=== PATIENT | male | born 2000 | race Caucasian/White ===

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

== ENCOUNTER 2021-06-15 08:36 | Emergency (ER) | payer OTHER ==
[~2021-06-15] VITALS: Ht 177.8 cm; Wt 94.3 kg
[2021-06-15 08:42] VITALS: BP 135/65
[2021-06-15] MEDS ORDERED: HYD1C TP (09:48)
[2021-06-15] MEDS ORDERED: MIRABULK PO (09:48)
[2021-06-15] MEDS ORDERED: LIDO5GEL3 TP (09:48)
[2021-06-15] MEDS ORDERED: DOCU-299 PO (09:48)
[2021-06-15 10:04] VITALS: BP 128/55
--- NOTE | 2021-06-15 10:05 | NUR ---
Patient discharged with v/s stable. Written and verbal after care instructions given CONSTIPATION, SITZ BATH, AND HEMORRHOIDS and explained. Patient alert, oriented and verbalized understanding of instructions. Ambulatory with steady gait. All questions addressed prior to discharge. ID band removed. Patient advised to follow up with PMD. Rx of COLACE, HYDROCORTISONE, LIDOCAINE, AND MIRALAX given. Patient educated on indication of medication including possible reaction and side effects. Opportunity to ask questions provided and answered.
== END 2021-06-15 10:05 | disposition home or self-care (01) ==
LOC: MED 08:36
DX: K64.9 Unspecified hemorrhoids (principal)
CPT/HCPCS: 99282

== ENCOUNTER 2021-09-30 13:40 | Emergency (ER) | payer OTHER ==
[~2021-09-30] VITALS: Ht 177.8 cm; Wt 88.9 kg
[~2021-09-30 13:40] MED LIST: DOCU-299 PO; HYD1C TP; LIDO5GEL3 TP; MIRABULK PO
[2021-09-30 13:54] VITALS: BP 156/89
--- NOTE | 2021-09-30 14:05 | NUR ---
DR CALVIN AND DR MOERNO AT TRIAGE DRESSING PT FINGERS AND EXAMINING AREA
--- NOTE | 2021-09-30 14:09 | NUR ---
PT AMBULATED TO BED 10 WITH STEADY GAIT
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
[2021-09-30] MEDS ORDERED: ACET-8386 PO (14:19)
[2021-09-30] MEDS ORDERED: CEPH-588 PO (14:25)
--- NOTE | 2021-09-30 14:31 | NUR ---
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
[2021-09-30] MEDS ORDERED: KETOROLAC 15 MG/ML VIAL IM ONE (14:35)
[2021-09-30 16:20] VITALS: BP 119/79
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
== END 2021-09-30 16:23 | disposition home or self-care (01) ==
LOC: MED 13:40
DX: S62.633B Displaced fracture of distal phalanx of left middle finger, initial encounter for open fracture (principal); S62.635D Displaced fracture of distal phalanx of left ring finger, subsequent encounter for fracture with routine healing; Z20.822 Contact with and (suspected) exposure to COVID-19; X58.XXXA Exposure to other specified factors, initial encounter; Y93.89 Activity, other specified; Y92.89 Other specified places as the place of occurrence of the external cause; Y99.8 Other external cause status
CPT/HCPCS: 73130; 87426; 96372; 99284; J1885

== ENCOUNTER 2024-03-15 22:22 | Emergency (ER) | payer OTHER ==
[~2024-03-15] VITALS: Ht 175.3 cm; Wt 99.8 kg
[~2024-03-15 22:22] MED LIST changes: +ACET-8905 PO; +CEPH-588 PO; -DOCU-299 PO; -HYD1C TP; -LIDO5GEL3 TP; -MIRABULK PO
[2024-03-15 22:51] VITALS: BP 119/62; PULSE 92; RESP 26; TEMP 98.2; O2SAT 100
[2024-03-15] MEDS: KETOROLAC 30 MG/ML VIAL IVP ONE (23:05)
[2024-03-15] MEDS: LORazepam 2 MG/ML VIAL IVP ONE (23:10)
[2024-03-15 23:20] LABS: BASOPHILS # (AUTO) 0.1 K/uL (0.00-0.22); BASOPHILS % (AUTO) 0.8 % (0.0-2.0); EOSINOPHILS # (AUTO) 0.2 K/uL (0-0.4); EOSINOPHILS % (AUTO) 1.7 % (0.0-4.0); HEMATOCRIT 44.9 % (36-52); HEMOGLOBIN 15.9 g/dL (12.0-18.0); LYMPHOCYTES # (AUTO) 3.6 K/uL (2.0-11.5); LYMPHOCYTES % (AUTO) 41.6 % (20.5-51.1); MEAN CORPUSCULAR HEMOGLOBIN 29 pg (27-31); MEAN CORPUSCULAR HGB CONC 35 g/dL (33-37); MEAN CORPUSCULAR VOLUME 82.7 fL (80-94); MONOCYTES # (AUTO) 0.6 K/uL (0.8-1.0); MONOCYTES % (AUTO) 6.6 % (1.7-9.3); NEUTROPHILS # (AUTO) 4.3 K/uL (1.8-7.7); NEUTROPHILS % (AUTO) 49.3 % (42.2-75.2); PLATELET COUNT (AUTO) 278 K/uL (140-450); RED BLOOD CELL COUNT(AUTO) 5.44 MIL/uL (4.20-6.10); WHITE BLOOD COUNT (AUTO) 8.7 K/uL (4.8-10.8)
[2024-03-16 00:08] LABS: ANION GAP 14.4 (8-16); CALCIUM 9.3 mg/dL (8.5-10.1); CARBON DIOXIDE 23.8 mmol/L (21-32); CREATININE 0.8 mg/dL (0.6-1.3); POTASSIUM 3.2 mmol/L (3.5-5.1)
[2024-03-16 00:12] LABS: ALBUMIN 4.1 g/dL (3.4-5.0); BILIRUBIN,DIRECT 0.1 mg/dL (0.0-0.3); TOTAL BILIRUBIN 0.5 mg/dL (0.0-1.0); TOTAL PROTEIN, SERUM 7.7 g/dL (6.4-8.2)
[2024-03-16] MEDS ORDERED: FAMO-90 PO (00:51)
[2024-03-16] MEDS ORDERED: ALUMINUM HYD/MAG/SIMETHICONE 30 ML UDC ONE (01:04)
[2024-03-16] MEDS ORDERED: DICYCLOMINE HCL LIQUID 10 MG/5 ML UDC ONE (01:05)
[2024-03-16] MEDS: DICYCLOMINE HCL LIQUID 20 MG, ALUMINUM HYD/MAG/SIMETHICONE 30 ML, LIDOCAINE VISCOUS 2% ... PO ONE (01:06)
[2024-03-16 02:17] VITALS: BP 133/78; PULSE 57; RESP 17; TEMP 98.3; O2SAT 97
== END 2024-03-16 02:17 | disposition home or self-care (01) ==
LOC: MED 22:22
DX: F41.9 Anxiety disorder, unspecified (principal); K21.9 Gastro-esophageal reflux disease without esophagitis; Z79.899 Other long term (current) drug therapy
CPT/HCPCS: 36415; 80048; 80076; 83690; 85025; 96374; 96375; 99284; J1885; J2060